=== PATIENT | female | born 1960 | race Two or more races ===

== ENCOUNTER 2019-12-10 12:58 | Emergency (ER) | payer SELFPAY ==
[~2019-12-10] VITALS: Ht 162.6 cm; Wt 54.0 kg
[2019-12-10 16:20] VITALS: BP 132/78
== END 2019-12-10 16:20 | disposition home or self-care (01) ==
LOC: ER 12:58
DX: J18.9 Pneumonia, unspecified organism (principal); Z20.828 Contact with and (suspected) exposure to other viral communicable diseases; E11.9 Type 2 diabetes mellitus without complications
CPT/HCPCS: 71045; 99283